=== PATIENT | female | born 1975 | race Caucasian/White ===

== ENCOUNTER 2018-05-03 10:14 | Emergency (ER) | payer SELFPAY ==
[~2018-05-03] VITALS: Ht 160 cm; Wt 75.7 kg
[2018-05-03 10:32] VITALS: BP 131/81
--- NOTE | 2018-05-03 10:35 | NUR ---
handed pt urine cup for sample
--- NOTE | 2018-05-03 11:33 | NUR ---
pt ambulated to bed 12
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
[2018-05-03 12:57] VITALS: BP 125/78
== END 2018-05-03 12:57 | disposition home or self-care (01) ==
LOC: MED 10:14
DX: S16.1XXA Strain of muscle, fascia and tendon at neck level, initial encounter (principal); S39.012A Strain of muscle, fascia and tendon of lower back, initial encounter; Z88.0 Allergy status to penicillin; V89.2XXA Person injured in unspecified motor-vehicle accident, traffic, initial encounter; Y93.89 Activity, other specified; Y92.89 Other specified places as the place of occurrence of the external cause; Y99.8 Other external cause status
CPT/HCPCS: 72040; 81002; 81025; 99284